=== PATIENT | male | born 1965 | race Caucasian/White ===

== ENCOUNTER → 2020-10-20 | Outpatient (CLI) | payer OTHER | LOC: WOUNDCARE 10-17 01:27 | PROVIDERS: ATTEND Nurse Practitioner | DX: T81.89XA Other complications of procedures, not elsewhere classified, initial encounter (principal); E11.622 Type 2 diabetes mellitus with other skin ulcer; L98.492 Non-pressure chronic ulcer of skin of other sites with fat layer exposed; I10 Essential (primary) hypertension; N45.4 Abscess of epididymis or testis; F10.10 Alcohol abuse, uncomplicated; F11.10 Opioid abuse, uncomplicated; Y83.8 Other surgical procedures as the cause of abnormal reaction of the patient, or of later complication, without mention of misadventure at the time of the procedure; Y92.238 Other place in hospital as the place of occurrence of the external cause ==

== ENCOUNTER → 2020-10-27 | Outpatient (CLI) | payer OTHER | LOC: WOUNDCARE 00:44 | PROVIDERS: ATTEND Nurse Practitioner | DX: T81.89XD Other complications of procedures, not elsewhere classified, subsequent encounter (principal); E11.622 Type 2 diabetes mellitus with other skin ulcer; L98.492 Non-pressure chronic ulcer of skin of other sites with fat layer exposed; I10 Essential (primary) hypertension; N45.4 Abscess of epididymis or testis; F10.10 Alcohol abuse, uncomplicated; F11.10 Opioid abuse, uncomplicated; Y83.8 Other surgical procedures as the cause of abnormal reaction of the patient, or of later complication, without mention of misadventure at the time of the procedure ==

== ENCOUNTER → 2020-11-03 | Outpatient (CLI) | payer OTHER | LOC: WOUNDCARE 00:49 | PROVIDERS: ATTEND Nurse Practitioner | DX: T81.89XD Other complications of procedures, not elsewhere classified, subsequent encounter (principal); E11.622 Type 2 diabetes mellitus with other skin ulcer; L98.492 Non-pressure chronic ulcer of skin of other sites with fat layer exposed; I10 Essential (primary) hypertension; N45.4 Abscess of epididymis or testis; R21 Rash and other nonspecific skin eruption; F10.10 Alcohol abuse, uncomplicated; F11.10 Opioid abuse, uncomplicated; Y83.8 Other surgical procedures as the cause of abnormal reaction of the patient, or of later complication, without mention of misadventure at the time of the procedure ==

== ENCOUNTER → 2020-11-10 | Outpatient (CLI) | payer OTHER | LOC: WOUNDCARE 02:48 | PROVIDERS: ATTEND Nurse Practitioner | DX: T81.89XD Other complications of procedures, not elsewhere classified, subsequent encounter (principal); N45.4 Abscess of epididymis or testis; E11.622 Type 2 diabetes mellitus with other skin ulcer; L98.492 Non-pressure chronic ulcer of skin of other sites with fat layer exposed; I10 Essential (primary) hypertension; R21 Rash and other nonspecific skin eruption; F10.10 Alcohol abuse, uncomplicated; F11.10 Opioid abuse, uncomplicated; Y83.8 Other surgical procedures as the cause of abnormal reaction of the patient, or of later complication, without mention of misadventure at the time of the procedure ==

== ENCOUNTER → 2020-11-16 | Outpatient (CLI) | payer OTHER | LOC: WOUNDCARE 00:29 | PROVIDERS: ATTEND Nurse Practitioner | DX: T81.89XD Other complications of procedures, not elsewhere classified, subsequent encounter (principal); N45.4 Abscess of epididymis or testis; E11.622 Type 2 diabetes mellitus with other skin ulcer; L98.492 Non-pressure chronic ulcer of skin of other sites with fat layer exposed; I10 Essential (primary) hypertension; R21 Rash and other nonspecific skin eruption; F10.10 Alcohol abuse, uncomplicated; F11.10 Opioid abuse, uncomplicated; Y83.8 Other surgical procedures as the cause of abnormal reaction of the patient, or of later complication, without mention of misadventure at the time of the procedure ==

== ENCOUNTER → 2020-11-24 | Outpatient (CLI) | payer OTHER | LOC: WOUNDCARE 00:44 | PROVIDERS: ATTEND Nurse Practitioner | DX: T81.89XD Other complications of procedures, not elsewhere classified, subsequent encounter (principal); N45.4 Abscess of epididymis or testis; E11.622 Type 2 diabetes mellitus with other skin ulcer; L98.492 Non-pressure chronic ulcer of skin of other sites with fat layer exposed; I10 Essential (primary) hypertension; R21 Rash and other nonspecific skin eruption; F10.10 Alcohol abuse, uncomplicated; F11.10 Opioid abuse, uncomplicated; Y83.8 Other surgical procedures as the cause of abnormal reaction of the patient, or of later complication, without mention of misadventure at the time of the procedure ==

== ENCOUNTER → 2020-11-30 | Outpatient (CLI) | payer OTHER | LOC: WOUNDCARE 01:13 | PROVIDERS: ATTEND Nurse Practitioner | DX: T81.89XD Other complications of procedures, not elsewhere classified, subsequent encounter (principal); N45.4 Abscess of epididymis or testis; E11.622 Type 2 diabetes mellitus with other skin ulcer; L98.492 Non-pressure chronic ulcer of skin of other sites with fat layer exposed; I10 Essential (primary) hypertension; R21 Rash and other nonspecific skin eruption; F10.10 Alcohol abuse, uncomplicated; F11.10 Opioid abuse, uncomplicated; Y83.8 Other surgical procedures as the cause of abnormal reaction of the patient, or of later complication, without mention of misadventure at the time of the procedure ==

== ENCOUNTER → 2020-12-15 | Outpatient (CLI) | payer OTHER | LOC: WOUNDCARE 02:03 | PROVIDERS: ATTEND Nurse Practitioner | DX: T81.89XD Other complications of procedures, not elsewhere classified, subsequent encounter (principal); N45.4 Abscess of epididymis or testis; E11.622 Type 2 diabetes mellitus with other skin ulcer; L98.492 Non-pressure chronic ulcer of skin of other sites with fat layer exposed; I10 Essential (primary) hypertension; R21 Rash and other nonspecific skin eruption; F10.10 Alcohol abuse, uncomplicated; F11.10 Opioid abuse, uncomplicated; Y83.8 Other surgical procedures as the cause of abnormal reaction of the patient, or of later complication, without mention of misadventure at the time of the procedure ==

== ENCOUNTER → 2020-12-20 | Outpatient (CLI) | payer OTHER | LOC: WOUNDCARE 01:13 | PROVIDERS: ATTEND Nurse Practitioner | DX: T81.89XD Other complications of procedures, not elsewhere classified, subsequent encounter (principal); N45.4 Abscess of epididymis or testis; E11.622 Type 2 diabetes mellitus with other skin ulcer; L98.492 Non-pressure chronic ulcer of skin of other sites with fat layer exposed; I10 Essential (primary) hypertension; R21 Rash and other nonspecific skin eruption; F10.10 Alcohol abuse, uncomplicated; F11.10 Opioid abuse, uncomplicated; Y83.8 Other surgical procedures as the cause of abnormal reaction of the patient, or of later complication, without mention of misadventure at the time of the procedure ==

== ENCOUNTER → 2020-12-26 | Outpatient (CLI) | payer OTHER | LOC: WOUNDCARE 01:08 | PROVIDERS: ATTEND Surgery | DX: T81.89XD Other complications of procedures, not elsewhere classified, subsequent encounter (principal); N45.4 Abscess of epididymis or testis; E11.622 Type 2 diabetes mellitus with other skin ulcer; L98.492 Non-pressure chronic ulcer of skin of other sites with fat layer exposed; I10 Essential (primary) hypertension; R21 Rash and other nonspecific skin eruption; F10.10 Alcohol abuse, uncomplicated; F11.10 Opioid abuse, uncomplicated; Y83.8 Other surgical procedures as the cause of abnormal reaction of the patient, or of later complication, without mention of misadventure at the time of the procedure ==

== ENCOUNTER → 2021-01-02 | Outpatient (CLI) | payer OTHER | LOC: WOUNDCARE 00:48 | PROVIDERS: ATTEND Surgery | DX: T81.89XD Other complications of procedures, not elsewhere classified, subsequent encounter (principal); E11.622 Type 2 diabetes mellitus with other skin ulcer; L98.492 Non-pressure chronic ulcer of skin of other sites with fat layer exposed; N49.3 Fournier gangrene; I10 Essential (primary) hypertension; R21 Rash and other nonspecific skin eruption; F10.10 Alcohol abuse, uncomplicated; F11.10 Opioid abuse, uncomplicated; Y83.8 Other surgical procedures as the cause of abnormal reaction of the patient, or of later complication, without mention of misadventure at the time of the procedure ==

== ENCOUNTER → 2021-07-05 | Outpatient (CLI) | payer OTHER | END | disposition home or self-care (01) | LOC: WOUNDCARE 00:24 | PROVIDERS: ATTEND Nurse Practitioner Family | DX: N49.2 Inflammatory disorders of scrotum (principal); E11.622 Type 2 diabetes mellitus with other skin ulcer; L98.491 Non-pressure chronic ulcer of skin of other sites limited to breakdown of skin; I10 Essential (primary) hypertension; F11.10 Opioid abuse, uncomplicated; Z85.6 Personal history of leukemia; Z79.4 Long term (current) use of insulin ==

== ENCOUNTER → 2021-07-13 | Outpatient (CLI) | payer OTHER | END | disposition home or self-care (01) | LOC: WOUNDCARE 00:35 | PROVIDERS: ATTEND Nurse Practitioner Family | DX: N49.2 Inflammatory disorders of scrotum (principal); E11.622 Type 2 diabetes mellitus with other skin ulcer; L98.498 Non-pressure chronic ulcer of skin of other sites with other specified severity; I10 Essential (primary) hypertension; F11.10 Opioid abuse, uncomplicated; Z85.6 Personal history of leukemia; Z79.4 Long term (current) use of insulin ==